=== PATIENT | male | born 1980 | race Caucasian/White ===

== ENCOUNTER → 2020-07-22 | Outpatient (CLI) | payer BC | LOC: KOH-I 14:30 | DX: M05.79 Rheumatoid arthritis with rheumatoid factor of multiple sites without organ or systems involvement (principal); M25.512 Pain in left shoulder | CPT/HCPCS: 73030; 73130; 73630 ==

== ENCOUNTER → 2020-08-23 | Outpatient (CLI) | payer BC | LOC: EMI 08:58 | DX: M25.512 Pain in left shoulder (principal); M24.112 Other articular cartilage disorders, left shoulder | CPT/HCPCS: 73221 ==